=== PATIENT | female | born 1995 | race Two or more races ===

== ENCOUNTER 2023-11-27 12:04 | Emergency (ER) | payer MEDICAID ==
[~2023-11-27] VITALS: Ht 147.3 cm; Wt 73.4 kg
[2023-11-27 12:23] VITALS: BP 124/75; PULSE 121; RESP 18; O2SAT 98
[2023-11-27] MEDS: SODIUM CHLORIDE 0.9% 1,000 ML IV ONE (12:55)
[2023-11-27 13:14] LABS: Urine Bacteria FEW /hpf (None Seen); Urine Blood Negative /uL (Negative); Urine Clarity Clear (Clear); Urine Color Yellow (Yellow); Urine Mucus FEW (None Seen); Urine Protein, UAD TRACE (Negative); Urine Specific Gravity 1.027 (1.001-1.035); Urine Urobilinogen Normal (Negative); Urine WBC 2 /hpf (0 - 5); Urine pH 6.5 (5.0-9.0)
[2023-11-27] MEDS ORDERED: CEPH250C PO (13:37)
[2023-11-27] MEDS: PROMETHAZINE HCL 6.25 MG/5 ML ORAL SYRUP PO ONE (13:44)
== END 2023-11-27 15:22 | disposition home or self-care (01) ==
LOC: ER 12:04
DX: O23.41 Unspecified infection of urinary tract in pregnancy, first trimester (principal); R10.2 Pelvic and perineal pain; O21.8 Other vomiting complicating pregnancy; N39.0 Urinary tract infection, site not specified; Z3A.13 13 weeks gestation of pregnancy; Z88.0 Allergy status to penicillin
CPT/HCPCS: 36415; 76801; 81001; 84702; 96360; 99284; J7030